=== PATIENT | male | born 1985 | race Caucasian/White ===

== ENCOUNTER 2016-11-12 21:35 | Emergency (ER) | payer OTHER ==
[~2016-11-12] VITALS: Ht 175.3 cm; Wt 86.3 kg
[2016-11-12 22:54] LABS: HEMATOCRIT 44.8 % (38.0-50.0); MCH 33.6 PG (29.0-34.0); MCV 95.9 FL (86-99); MEAN PLAT.VOLUME 10.4 uM^3 (9.0-12.4); PLATELET COUNT 223 K/uL (156-360); RBC DIS.WIDTH-CV 12.5 % (11.8-14.6); RBC DIS.WIDTH-SD 42.9 % (39-53); RED BLOOD COUNT 4.67 M/uL (4.00-5.50); WHITE BLOOD COUNT 11.9 K/uL (4.1-10.2)
[2016-11-12 23:02] LABS: ADD MIUA? YES; BILIRUBIN NEGATIVE; BLOOD SMALL; COLOR YELLOW ((YELLOW)); GLUCOSE (STRIP) NEGATIVE; KETONES 20; LEUKOCYTES NEGATIVE; NITRITE NEGATIVE; PROTEIN (STRIP) NEGATIVE; SPECIFIC GRAVITY 1.018 (1.000-1.030); UROBILINOGEN 0.2 MG/DL (0.2-1.0)
[2016-11-12 23:09] LABS: CHLORIDE 107 mEq/L (99-109); POTASSIUM 4.3 mEq/L (3.7-5.4); SODIUM 144 mEq/L (136-147)
[2016-11-12 23:12] LABS: GLUCOSE 93 mg/dL (70-99)
[2016-11-12 23:13] LABS: ANION GAP 13 MEQ/L (2-14); TOTAL BILIRUBIN 0.4 mg/dL (0.0-1.0)
[2016-11-12 23:14] LABS: SERUM ETHYL ALCOHOL 291 mg/dL
[2016-11-12 23:15] LABS: GFR ESTIMATE (CALCULATED) > 59 mL/min/
[2016-11-12 23:15] LABS: ADD MEDTOX COMMENT Y; AMPHETAMINE NEGATIVE (500 ng/mL); BARBITURATES NEGATIVE (200 ng/mL); BENZODIAZEPINES NEGATIVE (150 ng/mL); COCAINE NEGATIVE (150 ng/mL); INTERNAL CONTROLS VALID? YES; METHADONE NEGATIVE (200 ng/mL); METHAMPHETAMINE NEGATIVE (500 ng/mL); OPIATES (MORPHINE) NEGATIVE (100 ng/mL); OXYCODONE NEGATIVE (100 ng/mL); PHENCYCLIDINE NEGATIVE (25 ng/mL); PROPOXYPHENE NEGATIVE (300 ng/mL); THC CANNABINOIDS PRESUMPTIVE POSITIVE (50 ng/mL); TRICYCLIC ANTIDEPRESSANTS NEGATIVE (300 ng/mL)
[2016-11-12 23:16] LABS: ALKALINE PHOSPHATASE 85 IU/L (3-129)
[2016-11-12 23:17] LABS: UREA NITROGEN (BUN) 9 mg/dL (9-23)
[2016-11-12 23:19] LABS: SALICYLATE < 5.0 MG/DL (15-30)
[2016-11-12 23:27] LABS: BACTERIA NONE SEEN /HPF; EPITHELIAL CELLS RARE /HPF; MUCUS 2+ /LPF; RED BLOOD CELLS 0-5 /HPF (0-5); UCUL ADDED? NO; WHITE BLOOD CELLS 0-5 /HPF (0-5)
[2016-11-13 08:17] VITALS: BP 126/77
== END 2016-11-13 08:18 | disposition home or self-care (01) ==
LOC: EME → EDBD 21:35 → EME 21:35
PROVIDERS: Emergency Medicine
PROC: 0HQMXZZ Repair Right Foot Skin, External Approach (ICD-10-PCS; principal; 2016-11-13)
DX: F10.129 Alcohol abuse with intoxication, unspecified (principal); F12.10 Cannabis abuse, uncomplicated; F32.9 Major depressive disorder, single episode, unspecified; S91.311A Laceration without foreign body, right foot, initial encounter; W25.XXXA Contact with sharp glass, initial encounter; Y93.E9 Activity, other interior property and clothing maintenance; F17.200 Nicotine dependence, unspecified, uncomplicated; Y90.8 Blood alcohol level of 240 mg/100 ml or more; F43.23 Adjustment disorder with mixed anxiety and depressed mood
CPT/HCPCS: 73650; 80053; 81003; 84999; 85027; 90839; 99281; 99285; G0480